=== PATIENT | female | born 1995 | race Caucasian/White ===

== ENCOUNTER → 2019-03-22 08:13 | Outpatient (CLI) | payer MEDICAID ==
[~2019-03-22 08:13] MED LIST: HYDROCODON-ACE1 EAC7 PO; IBUPROFEN600 MG PO
[2019-03-22 08:52] LABS: APPEARANCE HAZY (CLEAR); BILIRUBIN NEGATIVE (NEGATIVE); COLOR YELLOW (YELLOW); GLUCOSE NEGATIVE (NEGATIVE); KETONE NEGATIVE (NEGATIVE); NITRITE NEGATIVE (NEGATIVE); PROTEIN NEGATIVE (NEGATIVE); UROBILINOGEN NORMAL (NORMAL)
[2019-03-22 09:02] LABS: UDS - AMPHET NEGATIVE QUAL (NEGATIVE); UDS - BARB NEGATIVE QUAL (NEGATIVE); UDS - BENZO NEGATIVE QUAL (NEGATIVE); UDS - COCAINE POSITIVE QUAL (NEGATIVE); UDS - OPIATE NEGATIVE QUAL (NEGATIVE); UDS - PCP NEGATIVE QUAL (NEGATIVE); UDS - THC POSITIVE QUAL (NEGATIVE)
[2019-03-22 10:25] LABS: BASOPHILS 0.2 % (0-2); EOSINOPHILS 0.6 % (0-7); HEMATOCRIT 32.9 % (36.0-48.0); HEMOGLOBIN 10.5 g/dL (12-16); IMMATURE GRANULOCYTES 0.3 % (0-5); LYMPHOCYTES 20.9 % (15-50); MCH 27.3 pg (26.0-34.0); MCHC 31.9 g/dL (31.0-37.0); MCV 85.7 fL (80.0-100.0); MEAN PLATELET VOLUME 10.4 fL (7.4-10.4); MONOCYTES 7.5 % (2-11); NEUTROPHILS 70.5 % (40-80); PLATELET COUNT 292 10x3/uL (130-400); RBC 3.84 10x6/uL (4.00-5.40); RDW 13.4 % (11.5-14.5); WBC 10.7 10x3/uL (4.8-10.8)
[2019-03-23 12:39] VITALS: BMI 22.5
== END | disposition home or self-care (01) ==
LOC: D.LDO 08:13
PROVIDERS: ATTEND Obstetrics & Gynecology
DX: O62.9 Abnormality of forces of labor, unspecified (principal); Z3A.00 Weeks of gestation of pregnancy not specified

== ENCOUNTER 2019-03-22 23:40 | Inpatient (IN) | payer MEDICAID ==
[~2019-03-22] VITALS: Ht 165.1 cm; Wt 61.4 kg
[2019-03-23 01:01] LABS: HEMATOCRIT 34.8 % (36.0-48.0); HEMOGLOBIN 11.3 g/dL (12-16); MCH 27.7 pg (26.0-34.0); MCHC 32.5 g/dL (31.0-37.0); MCV 85.3 fL (80.0-100.0); MEAN PLATELET VOLUME 10.6 fL (7.4-10.4); RBC 4.08 10x6/uL (4.00-5.40); RDW 13.1 % (11.5-14.5)
[2019-03-23 01:02] LABS: APPEARANCE CLEAR (CLEAR); BILIRUBIN NEGATIVE (NEGATIVE); COLOR YELLOW (YELLOW); GLUCOSE NEGATIVE (NEGATIVE); KETONE NEGATIVE (NEGATIVE); NITRITE NEGATIVE (NEGATIVE); PROTEIN NEGATIVE (NEGATIVE); UROBILINOGEN NORMAL (NORMAL)
[2019-03-23 01:11] LABS: WBC 17.2 10x3/uL (4.8-10.8)
[2019-03-23 01:36] LABS: UDS - AMPHET NEGATIVE QUAL (NEGATIVE); UDS - BARB NEGATIVE QUAL (NEGATIVE); UDS - BENZO NEGATIVE QUAL (NEGATIVE); UDS - COCAINE POSITIVE QUAL (NEGATIVE); UDS - OPIATE NEGATIVE QUAL (NEGATIVE); UDS - PCP NEGATIVE QUAL (NEGATIVE); UDS - THC POSITIVE QUAL (NEGATIVE)
--- NOTE | 2019-03-23 06:15 | NUR ---
PT TRANSFERRED VIA AMB FROM L&D POST NVD WITH DR BAUMANN, RECEIVED REPORT FROM ZUHAIR MORENO, RN, PT TO ROOM 1219 WITH FOB AND IN OPEN CRIB CART, PT TO BED, PT ORIENTED TO ROOM, JOEY ZAVALETA RN TO ROOM FOR ASSESSMENT ON , PT ORIENTED TO ROOM, BED IN LOW POSITION, SIDE RAILS X 2, CALL LIGHT IN REACH
--- NOTE | 2019-03-23 07:00 | NUR ---
REPORT RECEIVED FROM Jcarlos CAMARILLO RN.
--- NOTE | 2019-03-23 07:45 | NUR ---
IN TO SEE PT. BEDSIDE SHIFT REPORT COMPLETED.
--- NOTE | 2019-03-23 08:00 | NUR ---
ASSESSMENT COMPLETED. SEE FLOWSHEET. NO COMPLAINTS OR NEEDS AT THIS TIME.
--- NOTE | 2019-03-23 08:45 | NUR ---
VISITORS IN TO SEE PATIENT. S/O AT BEDSIDE ALSO.
[2019-03-23 12:39] VITALS: BP 98/63; Ht 165.1 cm; Wt 61.4 kg
--- NOTE | 2019-03-23 13:00 | NUR ---
PT. C/O MILD PAIN. MOTRIN OFFERED. PT.STATES SHE WOULD TAKE MOTRIN FOR HER DISCOMFORT.
--- NOTE | 2019-03-23 15:58 | NUR ---
NO COMPLAINTS AT THIS TIME. FAMILY AND VISITORS AT BEDSIDE.
--- NOTE | 2019-03-23 17:30 | NUR ---
IN TO SEE PATIENT. RESTING ON SIDE IN BED. IN ROOM IN OPEN CRIB. INQUIRED ABOUT PAIN LEVEL AND IF ANY PAIN MEDICINE IS NEEDED. PATIENT STATES SHE TOOK 2 EXTRA STRENGHT TYLENOL PROVIDED BY HER MOTHER. PATIENT ASKS, "IS THAT ALRIGHT?" INSTRUCTED PATIENT TO ONLY TAKE MEDICATIONS ORDERED BY HER PHYSICIAN FOR THE DURATION OF HER STAY. INFORMED PATIENT THAT ANY PAIN MEDICINE SHE WOULD NEED WOUD BE PROVIDED BY THE HOSPITAL. PATIENT STATES UNDERSTANDING.
--- NOTE | 2019-03-23 19:40 | NUR ---
RECIEVED REPORT FROM FLORENTIN MERCADO [facility] REP IS IN THE ROOM TALKING TO THE PT AT THIS TIME.
--- NOTE | 2019-03-23 20:20 | NUR ---
MET WITH PT. SHE HAS NO C/0 NO PAIN. NO NEEDS. FUNDUS IS FIRM. SHE STATES SHE HAS SMALL AMT OF BLEEDING. PT IS UP AD GENIE IN HER ROOM. SHE IS EATING WITHOUT DIFFICULTY. HEART SOUNDS WNL, LUNGS CLEAR AND HEAR BS IN ALL QUADS. SEE ADMISSION SHEET. PT HAS AN SL IN THE RIGHT WRIST.
[2019-03-23 20:30] VITALS: BP 128/71
--- NOTE | 2019-03-23 22:00 | NUR ---
PT IS PLAYING WITH BABY. NO C/O AT THIS TIME. NO PAIN.
--- NOTE | 2019-03-24 00:15 | NUR ---
PT STILL UP WITH BABY. NO C/O NO NEEDS
--- NOTE | 2019-03-24 02:00 | NUR ---
PT IS HERE. THEY ARE AWAKE TALKING NO C/O. NO NEEDS
--- NOTE | 2019-03-24 04:10 | NUR ---
PT IS DOING WELL. STILL WITHOUT C/O OR NEEDS.
[2019-03-24 07:11] LABS: RAPID PLASMA REAGIN Non Reactive (Non Reactive)
--- NOTE | 2019-03-24 07:30 | NUR ---
PT SLEEPING AT THIS TIME.
[2019-03-24 08:00] VITALS: BP 117/67
--- NOTE | 2019-03-24 08:00 | NUR ---
PT A&A W/ NO C/O AT THIS TIME. PT IN STABLE CONDITION.
--- NOTE | 2019-03-24 09:15 | NUR ---
PT REMAINS A&A W/ NO C/O AT THIS TIME. PT SITTING UP HOLDING SKIN TO SKIN.
--- NOTE | 2019-03-24 10:00 | NUR ---
PT REMAINS A&A W/ NO C/O AT THIS TIME.
--- NOTE | 2019-03-24 11:00 | NUR ---
PT RESTING W/ EYES CLOSED W/ NO S/S OF DISTRESS.
[2019-03-24 12:30] VITALS: BP 114/68
--- NOTE | 2019-03-24 12:30 | NUR ---
PT A&A W/ NO C/O AT THIS TIME. PT STANDING BESIDE BED.
--- NOTE | 2019-03-24 13:15 | NUR ---
DR. BAUMANN SEEING PT.
--- NOTE | 2019-03-24 13:30 | NUR ---
PT A&A W/ NO C/O AT THIS TIME. PT CHANGING .
--- NOTE | 2019-03-24 13:45 | NUR ---
DR. BAUMANN STATED PT OK TO BE D/C HOME F/U IN 4WEEKS.
--- NOTE | 2019-03-24 14:45 | NUR ---
PT SITTING UP IN BED HOLDING W/ NO C/O AT THIS TIME.
[2019-03-24] MEDS ORDERED: HYDROCODON-ACE1 EAC7 PO (15:16)
[2019-03-24] MEDS ORDERED: IBUPROFEN600 MG PO (15:16)
--- NOTE | 2019-03-24 16:32 | NUR ---
PT C/O ABD. CRAMPING SEE EMAR FOR MEDS GIVEN. IV ALSO REMOVED AT THIS TIME.
--- NOTE | 2019-03-24 17:15 | NUR ---
WRITTEN & VERBAL D/C INSTRUCTIONS REVIEWED W/ PT. PT ALSO GIVEN RX AT THIS TIME. PT VOICED UNDERSTANDING OF ALL INSTRUCTIONS INCLUDING TO CALL TO MAKE AN APT. W/ DR. BAUMANN IN 4WEEKS.
--- NOTE | 2019-03-24 18:35 | NUR ---
PT D/C'ED W/ INFANT IN STABLE CONDITION.
== END 2019-03-24 18:35 | disposition home or self-care (01) | DRG 806 ==
LOC: D.LDO 23:40 → D.LD 23:40 → D.LDO 03-23 → D.LD 03-23 00:01 → D.WS 03-23 00:01
PROVIDERS: ADMIT Obstetrics & Gynecology; ATTEND Obstetrics & Gynecology
PROC: 10D07Z6 Extraction of Products of Conception, Vacuum, Via Natural or Artificial Opening (ICD-10-PCS; principal; 2019-03-23)
DX: O76 Abnormality in fetal heart rate and rhythm complicating labor and delivery (principal); O99.324 Drug use complicating childbirth; Z37.0 Single live birth; O99.334 Smoking (tobacco) complicating childbirth; F17.200 Nicotine dependence, unspecified, uncomplicated; F14.10 Cocaine abuse, uncomplicated; Z3A.38 38 weeks gestation of pregnancy